=== PATIENT | male | born 1970 | race Caucasian/White ===

== ENCOUNTER 2022-07-21 01:44 | Observation (INO) | payer BC ==
[~2022-07-21] VITALS: Ht 157.5 cm; Wt 61.2 kg
[2022-07-21 02:16] LABS: HEMOGLOBIN 15.9 gm/dl (14.0-17.5); RED BLOOD COUNT 4.54 M/UL (4.20-5.50); WHITE BLOOD COUNT 11.3 K/UL (4.5-11.0)
[2022-07-21 03:00] LABS: BUN/CREATININE RATIO 12 (0-10)
--- NOTE | 2022-07-21 10:05 | NUR ---
SPOKE TO RADIOLOGY. PATIENT HAS ABNORMAL CT SHOWING HEMMORHAGE. DR BALLESTEROS AND HEENA NOTIFIED. PER DR BALLESTEROS PATIENT WILL NEED NEUROLOGY CONSULT.
[2022-07-21] MEDS ORDERED: NIMODIPINE30 MG PO (11:02)
[2022-07-21] MEDS ORDERED: DOXY 100100 MG IV ×2 (11:13→11:41)
[2022-07-21] MEDS ORDERED: ONDANSETRON4 MG/2 ML INJ (11:13)
[2022-07-21] MEDS ORDERED: PHOS-NAK PACKET1 EA PO (11:13)
[2022-07-21] MEDS ORDERED: PROTONIX IV40 MG IV (11:13)
[2022-07-21] MEDS ORDERED: ROCEPHIN 1 GM AD1 GM IV (11:13)
[2022-07-21] MEDS ORDERED: TYLENOL325 MG PO (11:19)
[2022-07-21] MEDS ORDERED: MORPHINE SU IV (11:19)
[2022-07-21] MEDS ORDERED: LIPITOR40 MG PO (11:33)
--- NOTE | 2022-07-21 11:48 | NUR ---
CALLED AND SPOKE TO CATHERINE MABRY AT [facility] PATIENT WAS GOING TO [address]OM [address]. REPORT GIVEN.
== END 2022-07-21 11:40 | disposition other institution (70) ==
LOC: ER1 01:44 → M/S 06:17 → CDU 06:17 → M/S 07:22
PROVIDERS: Physician Assistant; ADMIT Internal Medicine
DX: I60.9 Nontraumatic subarachnoid hemorrhage, unspecified (principal); I10 Essential (primary) hypertension; R77.8 Other specified abnormalities of plasma proteins; R71.8 Other abnormality of red blood cells; Z72.0 Tobacco use; Z86.73 Personal history of transient ischemic attack (TIA), and cerebral infarction without residual deficits; Z20.822 Contact with and (suspected) exposure to COVID-19
CPT/HCPCS: 70470; 71045; 80053; 80061; 82550; 82553; 82607; 82746; 83036; 83735; 84100; 84439; 84443; 84484; 84550; 85025; 85379; 86140; 93005; G0378; J0696; J2405; Q9967; U0002